=== PATIENT | male | born 1950 | race Hispanic/Latino ===

== ENCOUNTER 2017-12-21 06:47 | Day surgery (SDC) | payer OTHER ==
[~2017-12-21] VITALS: Ht 177.8 cm; Wt 79.8 kg
[~2017-12-21 06:47] MED LIST: ACET-2247 PO; IBUP-2353 PO; SODIUM CHLORIDE 0.9% 1000ML 1,000 ML IV ONE
[2017-12-21 08:15] VITALS: BP 131/77
[2017-12-21] MEDS ORDERED: PROPOFOL 10 MG/ML 20ML VIAL IV ONE ×2 (09:08→09:30)
[2017-12-21 09:25] VITALS: BP 87/48
[2017-12-21 09:50] VITALS: BP 103/65
[2017-12-21 09:55] VITALS: BP 110/58
== END 2017-12-21 10:05 ==
LOC: DAH 06:47 → ENDO 06:47
PROVIDERS: ATTEND Internal Medicine Gastroenterology
DX: R19.5 Other fecal abnormalities (principal); K21.9 Gastro-esophageal reflux disease without esophagitis; M19.90 Unspecified osteoarthritis, unspecified site; E66.9 Obesity, unspecified
CPT/HCPCS: 45378; A4606; J2704 ×2; J7030

== ENCOUNTER → 2023-03-21 | Outpatient (CLI) | payer OTHER ==
[~2023-03-21] MED LIST changes: -IBUP-2353 PO; +IBUP-2784 PO; -SODIUM CHLORIDE 0.9% 1000ML 1,000 ML IV ONE
== END | disposition home or self-care (01) ==
LOC: RAH 08:43
PROVIDERS: ATTEND Family Medicine
DX: N39.0 Urinary tract infection, site not specified (principal); Z87.440 Personal history of urinary (tract) infections
CPT/HCPCS: 76700; 76856